=== PATIENT | female | born 1990 | race Caucasian/White ===

== ENCOUNTER 2018-02-19 16:26 | Emergency (ER) | payer OTHER ==
[2018-02-19 19:30] LABS: ADD MAN DIFF? NO
[2018-02-19 19:34] LABS: WHITE BLOOD COUNT 12.1 10^3/ul (4.8-10.8)
[2018-02-19 19:34] LABS: BASOPHIL # 0.1 10^3/ul (0.0-0.1); BASOPHILS % 0.4 % (0.0-2.0); EOSINOPHILS # 0.1 10^3/ul (0.0-0.5); EOSINOPHILS % 0.8 % (0.0-7.0); HEMATOCRIT 39.2 % (37.0-47.0); HEMOGLOBIN 13.1 g/dl (12.0-16.0); LYMPHOCYTES # 2.4 10^3/ul (0.8-2.9); LYMPHOCYTES % 19.7 % (15.0-51.0); MEAN CORPUSCULAR HEMOGLOBIN 29.9 pg (29.0-33.0); MEAN CORPUSCULAR HGB CONC 33.4 g/dl (32.0-37.0); MEAN CORPUSCULAR VOLUME 89.5 fl (82.0-101.0); MEAN PLATELET VOLUME 9.7 fl (7.4-10.4); MONOCYTE # 0.7 10^3/ul (0.3-0.9); MONOCYTES % 6.1 % (0.0-11.0); NEUTROPHIL # 8.7 10^3/ul (1.6-7.5); NEUTROPHILS % 72.6 % (39.0-77.0); PLATELET COUNT 360 10^3/UL (140-415); RED BLOOD COUNT 4.38 10^6/ul (4.20-5.40); RED CELL DISTRIBUTION WIDTH 11.6 % (11.5-14.5)
[2018-02-19 19:43] LABS: ADD UMIC YES; UR ASCORBIC ACID NEGATIVE (NEGATIVE); UR BACTERIA FEW /HPF (NONE SEEN); UR BILIRUBIN (Dip) NEGATIVE (NEGATIVE); UR BLOOD (Dip) 1+ mg/dL (NEGATIVE); UR CLARITY CLOUDY (CLEAR); UR COLOR YELLOW (YELLOW); UR GLUCOSE (Dip) NEGATIVE (NEGATIVE); UR KETONES (Dip) TRACE mg/dL (NEGATIVE); UR LEUKOCYTE ESTERASE (Dip) NEGATIVE Leu/ul (NEGATIVE); UR MUCUS FEW /HPF (NONE SEEN); UR NITRITE (Dip) NEGATIVE (NEGATIVE); UR RBC 5 /HPF (0-5); UR SPECIFIC GRAVITY (Dip) 1.023 (1.003-1.030); UR SQUAMOUS EPITHELIAL CELL MANY /HPF (FEW); UR TOTAL PROTEIN (Dip) NEGATIVE (NEGATIVE); UR UROBILINOGEN (Dip) NEGATIVE (NEGATIVE); UR WBC 1 /HPF (0-5)
== END 2018-02-19 21:15 | disposition home or self-care (01) ==
LOC: FTE 16:26
DX: O02.1 Missed abortion (principal)
CPT/HCPCS: 36415; 76801; 81001; 84702; 85025; 99284-25

== ENCOUNTER 2018-02-25 07:47 | Day surgery (SDC) | payer OTHER ==
[2018-02-25] MEDS: SOD CHLORIDE 0.9% 500 ML IV (09:23)
[2018-02-25 09:38] LABS: ADD MAN DIFF? NO
[2018-02-25 09:41] LABS: BASOPHIL # 0.1 10^3/ul (0.0-0.1); BASOPHILS % 0.7 % (0.0-2.0); EOSINOPHILS # 0.1 10^3/ul (0.0-0.5); EOSINOPHILS % 1.2 % (0.0-7.0); HEMATOCRIT 36.8 % (37.0-47.0); HEMOGLOBIN 12.3 g/dl (12.0-16.0); MEAN CORPUSCULAR HEMOGLOBIN 29.4 pg (29.0-33.0); MEAN CORPUSCULAR HGB CONC 33.4 g/dl (32.0-37.0); MONOCYTE # 0.6 10^3/ul (0.3-0.9); MONOCYTES % 7.7 % (0.0-11.0); NEUTROPHIL # 5.3 10^3/ul (1.6-7.5); PLATELET COUNT 304 10^3/UL (140-415); RED BLOOD COUNT 4.18 10^6/ul (4.20-5.40); RED CELL DISTRIBUTION WIDTH 11.9 % (11.5-14.5)
[2018-02-25 09:41] LABS: WHITE BLOOD COUNT 8.2 10^3/ul (4.8-10.8)
[2018-02-25] MEDS: MISOPROSTOL 200 MCG TAB PR ×2 (10:30→10:34)
[2018-02-25] MEDS ORDERED: PROPOFOL 100 ML (10:36)
[2018-02-25] MEDS ORDERED: FENTAnyl 50 MCG/ML VIAL (10:36)
[2018-02-25] MEDS ORDERED: DEXAMETHASONE 4 MG/ML 5 ML INJ (11:00)
[2018-02-25] MEDS ORDERED: ONDANSETRON 4 MG INJ (11:00)
[2018-02-25] MEDS ORDERED: CEFAZOLIN 1 GM INJ (11:08)
[2018-02-25] MEDS ORDERED: KETOROLAC 30 MG INJ (11:23)
[2018-02-25] MEDS ORDERED: HYDROmorphONE 1 MG/5 ML IV SYRINGE IV ×3 (11:59→12:00)
[2018-02-25] MEDS ORDERED: KETOROLAC 30 MG INJ IV (12:00)
[2018-02-25] MEDS ORDERED: LABETALOL HCL 20MG INJ IV (12:00)
[2018-02-25] MEDS ORDERED: hydrALAzine 20 MG INJ IV (12:00)
[2018-02-25] MEDS ORDERED: METOCLOPRAMIDE 10 MG INJ IV (12:00)
[2018-02-25] MEDS ORDERED: ALBUTEROL 0.083% (NEB) 2.5 MG/3 ML AMP HHN (12:00)
[2018-02-25] MEDS ORDERED: FENTAnyl 50 MCG/ML VIAL IV ×3 (12:00)
[2018-02-25] MEDS ORDERED: MEPERIDINE 25 MG INJ IV (12:00)
[2018-02-25] MEDS ORDERED: DIPHENHYDRAMINE 50 MG INJ IV (12:00)
[2018-02-25] MEDS ORDERED: OXYCODONE/ACETAMINOPHEN (5/325) TAB PO (12:00)
[2018-02-25] MEDS: HYDROmorphONE 1 MG/5 ML IV SYRINGE IV (12:04)
[2018-02-25] MEDS: ONDANSETRON 4 MG INJ IV (12:09)
[2018-02-25] MEDS: OXYCODONE/ACETAMINOPHEN (5/325) TAB PO (12:13)
[2018-02-25] MEDS ORDERED: HYDROCODONE/APAP (5/325) TAB PO (12:30)
[2018-02-25] MEDS ORDERED: IBUPROFEN 800 MG TAB GTB (14:00)
== END 2018-02-25 17:54 | disposition home or self-care (01) ==
LOC: FTE 07:47 → SUR 10:07 → SDS 10:07 → SUR 17:54
DX: O02.1 Missed abortion (principal)
CPT/HCPCS: 36415; 84702; 85025; 86900; 86901; 88305; 96374; 96375; 99285-25